=== PATIENT | female | born 1995 | race African-American/Black ===

== ENCOUNTER 2016-09-28 11:47 | Emergency (ER) | payer SELFPAY ==
[~2016-09-28] VITALS: Ht 162.6 cm; Wt 80.0 kg
[2016-09-28 11:48] VITALS: BP 136/84; PULSE 106; RESP 20; TEMP 99; O2SAT 99
[2016-09-28] MEDS ORDERED: birth control PO (12:02)
[2016-09-28] MEDS ORDERED: SODIUM CHLOR 0.9% 1000 ML INJ 1,000 ML IV SCH (12:11)
[2016-09-28] MEDS ORDERED: KETOROLAC TROMETHAMINE 30 MG/ML (IVP) VIAL IVP ONE (12:15)
[2016-09-28] MEDS ORDERED: ALUMINUM/MAGNESIUM/SIMETH 30 ML CUP PO ONE (12:15)
[2016-09-28] MEDS ORDERED: SODIUM CHLORIDE 0.9% FLUSH 10 ML FLUSH IV FLUSH PRN (12:15)
[2016-09-28] MEDS ORDERED: LIDOCAINE VISCOUS 2% SOLN 15 ML UDC PO ONE (12:15)
[2016-09-28] MEDS ORDERED: ONDANSETRON HCL 4 MG/2 ML VIAL IVP ONE (12:15)
--- NOTE | 2016-09-28 12:38 | PD ---
HPI Chief Complaint: GI Complaint Time Seen by Provider: 12:09 Travel History International Travel<30 days: No Contact w/Intl Traveler<30days: No Traveled to known affect area: No History of Present Illness HPI Healthy 20-year-old female with history of intermittent reflux here with complaint of epigastric abdominal pain. Patient is here vacationing for a family reunion. She woke up this morning with complaint of a sharp epigastric abdominal pain. This is different than her usual GERD, which is more reflux, burning. Patient states that the pain is sharp, epigastric, minimally radiates throughout the upper abdomen. Associated nausea, vomiting 5. No hematemesis. One episode of loose stool. No hematochezia. No fevers or chills. She does not recall having eaten any raw, undercooked seafood, sushi, meat, etc. PFSH Past Medical History High Cholesterol: Yes Chest Pain: Yes GERD: Yes Tetanus Vaccination: > 5 Years Influenza Vaccination: No ?: Not LMP: 09/09/16 Past Surgical History Oral Surgery: Yes (wisdom teeth) Family History Family Myocardial Infarction: Yes Family Hypercholesterolemia: Yes Social History Alcohol Use: Yes Tobacco Use: No Substance Use: No Allergies-Medications (Allergen,Severity, Reaction): Coded Allergies: Morphine (Verified Allergy, Unknown, 09/28/16) Reported Meds & Prescriptions Reported Meds & Active Scripts Active Reported [ control] PO DAILY Review of Systems Except as stated in HPI: all other systems reviewed are Neg Physical Exam Narrative GENERAL: Well-appearing female in no acute distress SKIN: Focused skin assessment warm/dry. HEAD: Normocephalic. EYES: No scleral icterus. No injection or drainage. ENT: Mucous membranes pink and moist. NECK: Supple CARDIOVASCULAR: Regular rate and rhythm. RESPIRATORY: No accessory muscle use. GASTROINTESTINAL: Abdomen soft, minimal epigastric abdominal tenderness to palpation without rebound or guarding. No CVA tenderness. MUSCULOSKELETAL: Normal gait NEUROLOGICAL: Awake and alert. Normal speech. PSYCHIATRIC: Appropriate mood and affect; insight and judgment normal. Data Data Last Documented VS Vital Signs Date Time Temp Pulse Resp B/P Pulse Ox O2 Delivery O2 Flow Rate FiO2 09/28/16 14:02 100 Room Air 09/28/16 11:48 99.0 106 20 136/84 Orders Complete Blood Count With Diff (09/28/16 12:11) Comprehensive Metabolic Panel (09/28/16 12:11) Lipase (09/28/16 12:11) Iv Access Insert/Monitor (09/28/16 12:11) Oximetry (09/28/16 12:11) Ondansetron Inj (Zofran Inj) (09/28/16 12:15) Sodium Chlor 0.9% 1000 Ml Inj (Ns 1000 M (09/28/16 12:11) Sodium Chloride 0.9% Flush (Ns Flush) (09/28/16 12:15) Ketorolac Inj (Toradol Inj) (09/28/16 12:15) Al-Mag Hy-Si 40-40-4 Mg/Ml Liq (Mag-Al P (09/28/16 12:15) Lidocaine 2% Viscous (Xylocaine 2% Visco (09/28/16 12:15) Labs Laboratory Tests Test 09/28/16 12:50 White Blood Count 7.5 TH/MM3 Red Blood Count 5.59 MIL/MM3 Hemoglobin 12.8 GM/DL Hematocrit 37.8 % Mean Corpuscular Volume 67.6 FL Mean Corpuscular Hemoglobin 22.8 PG Mean Corpuscular Hemoglobin 33.8 % Concent Red Cell Distribution Width 14.9 % Platelet Count 221 TH/MM3 Mean Platelet Volume 9.1 FL Neutrophils (%) (Auto) 93.1 % Lymphocytes (%) (Auto) 2.8 % Monocytes (%) (Auto) 3.6 % Eosinophils (%) (Auto) 0.2 % Basophils (%) (Auto) 0.3 % Neutrophils # (Auto) 7.0 TH/MM3 Lymphocytes # (Auto) 0.2 TH/MM3 Monocytes # (Auto) 0.3 TH/MM3 Eosinophils # (Auto) 0.0 TH/MM3 Basophils # (Auto) 0.0 TH/MM3 CBC Comment DIFF FINAL Differential Comment Sodium Level 139 MEQ/L Potassium Level 4.4 MEQ/L Chloride Level 106 MEQ/L Carbon Dioxide Level 23.0 MEQ/L Anion Gap 10 MEQ/L Blood Urea Nitrogen 16 MG/DL Creatinine 0.61 MG/DL Estimat Glomerular Filtration 124 ML/MIN Rate Random Glucose 87 MG/DL Calcium Level 8.5 MG/DL Total Bilirubin 0.6 MG/DL Aspartate Amino Transf 33 U/L (AST/SGOT) Alanine Aminotransferase 23 U/L (ALT/SGPT) Alkaline Phosphatase 52 U/L Total Protein 7.4 GM/DL Albumin 3.4 GM/DL Lipase 117 U/L [facility] Medical Decision Making Medical Screen Exam Complete: Yes Emergency Medical Condition: Yes Medical Record Reviewed: Yes Differential Diagnosis 20-year-old female here with complaint of epigastric abdominal pain, sharp, nausea vomiting 5 this a.m. Differential includes GERD, gastritis, pancreatitis, hepatobiliary pathology must likely peritoneal pathology given her overall benign abdominal examination. Narrative Course Patient placed on monitor, IV established and blood obtained. Given 4 mg Zofran , 30 mg Toradol, 1 L normal saline bolus and GI cocktail. CBC, CMP, lipase unremarkable. Patient felt improved, reassured and discharged home Diagnosis Primary Impression: Nausea vomiting and diarrhea Additional Impression: Epigastric abdominal pain Referrals: Primary Care Physician Additional Instructions: Zofran as needed for nausea, vomiting. Drink plenty of fluids. Med/Other Pt SpecificInfo: Prescription(s) given Scripts Ondansetron Odt (Zofran Odt)8 Mg Tab8 Mg SL Q8H PRN (NAUSEA OR VOMITING) #10 TAB Ref 0 Prov:Blanca Jim MD 09/28/16 Disposition: 01 DISCHARGE HOME Condition: Stable Blanac Jim MD Sep 28, 2016 12:38
[2016-09-28 13:01] LABS: BASOPHIL % 0.3 % (0.0-2.0); EOSINOPHIL % 0.2 % (0.0-4.0); HEMATOCRIT 37.8 % (35.0-46.0); HEMO FLAGS DIFF FINAL; LYMPH % 2.8 % (9.0-44.0); LYMPHOCYTE # 0.2 TH/MM3 (1.0-4.8); MEAN CELL VOLUME 67.6 FL (80.0-100.0); MEAN CORPUSCULAR HEMOGLOBIN 22.8 PG (27.0-34.0); MEAN CORPUSCULAR HGB CONC 33.8 % (32.0-36.0); MONO % 3.6 % (0.0-8.0); NEUT % 93.1 % (16.0-70.0); PLATELET COUNT 221 TH/MM3 (150-450); RED BLOOD COUNT 5.59 MIL/MM3 (4.00-5.30); RED CELL DISTRIBUTION WIDTH 14.9 % (11.6-17.2); WHITE BLOOD COUNT 7.5 TH/MM3 (4.0-11.0)
[2016-09-28 13:30] LABS: ALT (GPT) 23 U/L (10-53)
[2016-09-28 13:32] LABS: ALKALINE PHOSPHATASE 52 U/L (45-117); TOTAL BILIRUBIN ADULT 0.6 MG/DL (0.2-1.0)
[2016-09-28 13:49] LABS: ANION GAP 10 MEQ/L (5-15); AST (GOT) 33 U/L (15-37); BLOOD UREA NITROGEN 16 MG/DL (7-18); CHLORIDE 106 MEQ/L (98-107); GLOMERULAR FILTRATION RATE 124 ML/MIN (>89); POTASSIUM 4.4 MEQ/L (3.5-5.1); SODIUM (NA) 139 MEQ/L (136-145)
[2016-09-28 14:02] VITALS: O2SAT 100
[2016-09-28] MEDS ORDERED: ZOFR8TAB4 SL (14:04)
== END 2016-09-28 14:40 | disposition home or self-care (01) ==
LOC: EDBD → NEPD 11:47
DX: R11.2 Nausea with vomiting, unspecified (principal); R19.7 Diarrhea, unspecified; R10.13 Epigastric pain; K21.9 Gastro-esophageal reflux disease without esophagitis
CPT/HCPCS: 80053; 83690; 85025; 96361; 96374; 96375; 99284; J1885; J2405; J7030